=== PATIENT | female | born 1970 | race Caucasian/White ===

== ENCOUNTER 2023-07-06 18:49 | Emergency (ER) | payer OTHER ==
[2023-07-06 20:50] LABS: APPEARANCE,URINE CLEAR (CLEAR); BILIRUBIN,URINE NEGATIVE (NEGATIVE); COLOR,URINE YELLOW (YELLOW); GLUCOSE,URINE NEGATIVE (NEGATIVE); KETONES,URINE NEGATIVE (NEGATIVE); LEUKOCYTE ESTERASE,URINE NEGATIVE (NEGATIVE); NITRITE,URINE NEGATIVE (NEGATIVE); OCCULT BLOOD,URINE NEGATIVE (NEGATIVE); PROTEIN,URINE NEGATIVE (NEGATIVE); UROBILINOGEN,URINE 0.2 mg/dL (0.2-1.0)
[2023-07-06] MEDS: Sodium Chloride 0.9% 10 ML Syringe FLUSH PRN (21:17)
[2023-07-06] MEDS: Ketorolac 30 MG/ML SDV IVPUSH ONE (21:19)
[2023-07-06] MEDS: Sodium Chloride 0.9% 1,000 ML IV ONE (21:19)
[2023-07-06 21:22] LABS: BASOPHILS PERCENT AUTO 0.3 % (0.0-1.0); HEMOGLOBIN 13.9 g/dL (12.0-16.0); LYMPHOCYTES PERCENT AUTO 12.4 % (20.5-50.1); MEAN CORPUSCULAR HEMOGLOBIN 29.8 pg (27.0-34.0); MEAN CORPUSCULAR HGB CONC 32.3 g/dL (33.0-35.0); MEAN CORPUSCULAR VOLUME 92.1 fL (80-100); MONOCYTES PERCENT AUTO 3.2 % (2-8); NEUTROPHILS PERCENT AUTO 83.1 % (42.2-75.2); PLATELET COUNT,PLT 306 10^3/uL (150-450); RED BLOOD CELL COUNT 4.67 10^6/uL (4.2-5.4); WHITE BLOOD CELL COUNT,WBC 11.8 10^3/uL (5.0-10.0)
[2023-07-06 21:45] LABS: ALBUMIN 3.7 g/dL (3.4-5.0); ANION GAP 12.4 mEq/L (7-13); BILIRUBIN TOTAL 0.5 mg/dL (0.2-1.0); BUN/CREATININE RATIO 14.4 (No establ ref range); CALCIUM 8.9 mg/dL (8.5-10.1); CREATININE 0.97 mg/dL (0.55-1.02); EST CRCL DRUG DOSING (CG) 79.18 mL/min; POTASSIUM,K 4.4 mmol/L (3.5-5.1); PROTEIN TOTAL,TP 7.5 g/dL (6.4-8.2)
[2023-07-06] MEDS: Take Home: Acetaminophen/HYDROcodone 325-5 MG, 5 Tab Pack PO ONE (23:13)
[2023-07-06] MEDS: Morphine 2 MG/ML SYRINGE IVPUSH ONE (23:13)
[2023-07-06] MEDS: Morphine 2 MG/ML SYRINGE IM ONE (23:14)
[2023-07-06] MEDS: Ondansetron 4 MG/2 ML SDV IVPUSH ONE (23:24)
[2023-07-06] MEDS: Take Home: Ondansetron 4 MG Tab.DIS, 5 Tab Pack PO ONE (23:50)
== END 2023-07-06 23:56 | disposition home or self-care (01) ==
LOC: DL.ED 18:49
DX: N20.0 Calculus of kidney (principal); N83.201 Unspecified ovarian cyst, right side; K59.04 Chronic idiopathic constipation; Z88.8 Allergy status to other drugs, medicaments and biological substances
CPT/HCPCS: 36415; 74176; 80053; 81003; 85025; 96361; 96374; 96375; 99284; A9270; J1885; J2270; J2405; J7030; Q0162; J3490